=== PATIENT | female | born 1960 | race Caucasian/White ===

== ENCOUNTER 2016-11-02 02:50 | Emergency (ER) | payer OTHER ==
[~2016-11-02 02:50] MED LIST: ACIPHEX20 MG PO; AMLODIPINE5 MG PO; ANTIVERT25 MG PO; ATARAX25 MG PO; ATIVAN0.5 MG PO; ATIVAN1 MG PO; AUGMENTIN 875875 MG PO; BIAXIN500 MG PO; CEFTIN500 M1 PO; CLARITIN10 MG PO; COZAAR25 M1 PO; DONNATAL1 TAB PO; GLIPIZIDE ER10 M1 PO; GLIPIZIDE ER2.5 MG PO; IBU800 M1 PO; LEVOTHYROXIN0.125 M1 PO; LEVOTHYROXINE0.15 MG PO; LIDODERM5% TP; LIPITOR20 MG PO; LISINOPRIL10 MG PO; LOSARTAN POTASS25 M1 PO; MEDROL DOSEPAK4 MG PO; METFORMIN PO; METFORMIN1000 MG PO; METFORMIN500 MG PO; METFORMIN750 MG PO; MOTRIN400 MG; MOTRIN800 MG PO; Meclizine25 MG PO; Metformin Hydr500 MG PO; Motrin,Rufen800 MG PO; NEURONTIN100 MG PO; NEURONTIN300 MG PO; NORFLEX100 MG PO; ORPHENADRINE E100 MG PO; OSCAL,OYSTER S500 MG PO; PREDNISONE10 MG PO; PREDNISONE20 M1 PO; PROAIR HFA8.5 GM INH; PYRIDIUM100 MG PO; PYRIDIUM200 MG PO; REGLAN10 MG PO; TORADOL10 MG PO; TRAD5TAB1 PO; TYLENOL WITH CO1 TA1 PO; ULTRAM50 MG PO; VITAMIN D50000 I3 PO; ZANTAC150 MG PO; ZITHROMAX Z PA250 MG PO; ZYRTEC10 MG PO
[2016-11-02 03:06] LABS: HEMOGLOBIN 16.8 g/dl (12.0-16.0); MEAN CELL VOLUME 85.3 fl (81.0-99.0); MEAN CORPUSCULAR HGB 28.7 pg (27.0-31.0); MEAN CORPUSCULAR HGB CONC 33.6 g/dl (33.0-37.0); MEAN PLATELET VOLUME 10.1 fl (9.6-12.3); PLATELET COUNT AUTOMATED 327 10*3/uL (130-400); RED BLOOD COUNT 5.86 10*6/uL (4.10-5.10); RED CELL DISTRI WIDTH 13.8 % (0-14.5)
[2016-11-02 03:17] LABS: INTERNATIONAL NORM RATIO 0.9 (2.0-3.5); PROTHROMBIN TIME 9.9 SECONDS (9.0-12.4)
[2016-11-02 03:22] LABS: ALBUMIN 3.5 gm/dl (3.1-4.5); ALKALINE PHOSPHATASE 103 U/L (45-117); BILIRUBIN, TOTAL 0.3 mg/dl (0.2-1.0); BUN 20 mg/dl (7-24); CARBON DIOXIDE 31 mmol/L (21-32); CHLORIDE 101 mmol/L (98-107); EST GLOM FILT AFRICAN AMERICAN > 60 ml/min; GLUCOSE 221 mg/dL (65-99); MAGNESIUM 1.9 mg/dL (1.5-2.1); POTASSIUM 3.9 mmol/L (3.5-5.1); SGOT/AST 15 IU/L (3-35); SGPT/ALT 41 U/L (12-78); SODIUM 141 mmol/L (136-145); TOTAL PROTEIN 7.1 gm/dL (6.4-8.2)
[2016-11-02 03:25] LABS: ATYPICAL LYMPHS 10 % (0-0); BASOPHIL # 0.1 10*3/uL (0-0.1); BASOPHILS 1 % (0-1); LYMPHOCYTE # 5.5 10*3/uL (1.3-4.4); NEUTROPHIL # 7.4 10*3/uL (2.3-7.9); NEUTROPHILS 53 % (47-73); PLATELET SUFFICIENCY NORMAL (NORMAL); TOTAL CELLS COUNTED 100 #CELLS
[2016-11-02 03:30] LABS: TROPONIN I < 0.015 ng/ml (<0.045)
[2016-11-02] MEDS ORDERED: PROTONIX40 MG PO (06:12)
== END 2016-11-02 06:57 | disposition home or self-care (01) ==
LOC: ED 02:50
PROVIDERS: Emergency Medicine Emergency Medical Services
DX: K21.9 Gastro-esophageal reflux disease without esophagitis (principal); F41.9 Anxiety disorder, unspecified; I10 Essential (primary) hypertension; Z88.1 Allergy status to other antibiotic agents; Z88.6 Allergy status to analgesic agent; Z79.899 Other long term (current) drug therapy

== ENCOUNTER 2016-11-26 06:09 | Emergency (ER) | payer OTHER ==
[~2016-11-26] VITALS: Ht 162.5 cm; Wt 90.7 kg
[~2016-11-26 06:09] MED LIST changes: +PROTONIX40 MG PO
[2016-11-26] MEDS ORDERED: CLARITIN-D 24 H1 TAB PO (06:37)
[2016-11-26] MEDS ORDERED: CLARITIN10 MG PO (06:38)
[2016-11-26 06:42] LABS: BASO # 0.1 10*3/uL (0.0-0.1); BASO % 0.7 % (0.0-1.0); EOS # 0.2 10*3/uL (0.0-0.4); EOS % 1.6 % (1.0-4.0); HEMATOCRIT 47.4 % (37.0-47.0); HEMOGLOBIN 15.7 g/dl (12.0-16.0); IG # 0.1 10*3/uL (0.0-0.1); LYMPH # 4.9 10*3/uL (1.3-4.4); LYMPH % 40.2 % (27.0-41.0); MEAN CELL VOLUME 85.1 fl (81.0-99.0); MEAN CORPUSCULAR HGB 28.2 pg (27.0-31.0); MEAN CORPUSCULAR HGB CONC 33.1 g/dl (33.0-37.0); MEAN PLATELET VOLUME 10.6 fl (9.6-12.3); MONO # 0.7 10*3/uL (0.1-1.0); MONO % 5.6 % (3.0-9.0); NEUT # 6.3 10*3/uL (2.3-7.9); PLATELET COUNT AUTOMATED 261 10*3/uL (130-400); RED BLOOD COUNT 5.57 10*6/uL (4.10-5.10); RED CELL DISTRI WIDTH 13.6 % (0-14.5); WHITE BLOOD COUNT 12.2 10*3/uL (4.8-10.8)
[2016-11-26 07:03] LABS: ALBUMIN 3.3 gm/dl (3.1-4.5); ALKALINE PHOSPHATASE 109 U/L (45-117); BILIRUBIN, TOTAL 0.2 mg/dl (0.2-1.0); BUN 15 mg/dl (7-24); CARBON DIOXIDE 27 mmol/L (21-32); CHLORIDE 101 mmol/L (98-107); EST GLOM FILT AFRICAN AMERICAN > 60 ml/min; GLUCOSE 396 mg/dL (65-99); SGOT/AST 35 IU/L (3-35); SGPT/ALT 82 U/L (12-78); SODIUM 139 mmol/L (136-145); TOTAL PROTEIN 6.7 gm/dL (6.4-8.2)
[2016-11-26 07:04] LABS: TROPONIN I < 0.015 ng/ml (<0.045)
== END 2016-11-26 08:46 | disposition home or self-care (01) ==
LOC: ED 06:09
PROVIDERS: Emergency Medicine Emergency Medical Services
DX: J20.9 Acute bronchitis, unspecified (principal); F41.9 Anxiety disorder, unspecified; I10 Essential (primary) hypertension; K21.9 Gastro-esophageal reflux disease without esophagitis; Z88.1 Allergy status to other antibiotic agents; Z88.6 Allergy status to analgesic agent; Z79.899 Other long term (current) drug therapy

== ENCOUNTER 2017-02-08 16:27 | Emergency (ER) | payer OTHER ==
[~2017-02-08] VITALS: Wt 90.7 kg
[~2017-02-08 16:27] MED LIST changes: +CLARITIN-D 24 H1 TAB PO
[2017-02-08] MEDS ORDERED: AMOXICILLIN500 M2 PO (17:26)
== END 2017-02-08 19:07 | disposition home or self-care (01) ==
LOC: ED 16:27
DX: R42 Dizziness and giddiness (principal); H65.91 Unspecified nonsuppurative otitis media, right ear; I10 Essential (primary) hypertension; F17.200 Nicotine dependence, unspecified, uncomplicated; K21.9 Gastro-esophageal reflux disease without esophagitis; Z88.6 Allergy status to analgesic agent; Z88.8 Allergy status to other drugs, medicaments and biological substances